=== PATIENT | female | born 1970 | race Caucasian/White ===

== ENCOUNTER → 2019-07-10 | Outpatient (CLI) | payer OTHER | LOC: M.CT 15:30 | DX: R10.11 Right upper quadrant pain (principal); Z98.84 Bariatric surgery status ==

== ENCOUNTER → 2019-07-15 | Outpatient (CLI) | payer OTHER ==
[2019-07-15 08:50] LABS: ABSOLUTE BASOPHILS 0.1 thou/uL (0.0-0.2); ABSOLUTE EOSINOPHILS 0.2 thou/uL (0.0-0.7); ABSOLUTE LYMPHOCYTES 1.4 thou/uL (0.8-5.3); ABSOLUTE MONOCYTES 0.5 thou/uL (0.0-1.2); BASOPHILS 1.1 %; EOSINOPHILS 3.2 %; HEMATOCRIT 33.9 % (37.0-47.0); HEMOGLOBIN 10.6 gm/dL (12.0-15.0); LYMPHOCYTES 22.9 %; MCH 20.9 pg (26.0-34.0); MCHC 31.4 g/dL (28.0-37.0); MCV 66.6 fL (80.0-100.0); MONOCYTES 8.2 %; MPV 7.1 fl. (7.2-11.1); NUCLEATED RBCS 0 /100WBC; PLATELET COUNT* 335 thou/uL (150-400); POLYS 64.6 %; RBC 5.08 mil/uL (4.20-5.00); RDW-CV 18.4 % (10.5-14.5); WBC 6.2 thou/uL (4.0-11.0)
[2019-07-15 09:39] LABS: ANISOCYTOSIS 1+; HYPOCHROMASIA 1+; PLATELET ESTIMATE ADEQUATE
[2019-07-15 09:52] LABS: ALBUMIN 3.3 g/dL (3.4-5.0); ALKALINE PHOSPHATASE 103 U/L (46-116); ANION GAP 10 mmol/L (7-16); BUN 13 mg/dL (7-18); CALCIUM 8.7 mg/dL (8.5-10.1); CHLORIDE 105 mmol/L (98-107); CHOLESTEROL 235 mg/dL (<200); CO2 26 mmol/L (21-32); CREATININE 0.6 mg/dL (0.6-1.3); GLUCOSE 84 mg/dL (70-99); HDL CHOLESTEROL 53 mg/dL (>40); LDL CHOLESTEROL 155 mg/dL (<100); POTASSIUM 4.9 mmol/L (3.5-5.1); SGOT 20 U/L (15-37); SGPT 36 U/L (30-65); SODIUM 141 mmol/L (136-145); TC:HDL 4.4 Ratio (Not establshd); TOTAL BILIRUBIN 0.5 mg/dL (<0.1-1.0); TOTAL PROTEIN 7.1 g/dL (6.4-8.2); TRIGLYCERIDE 139 mg/dL (<150); VLDL 28 mg/dL (<40)
[2019-07-15 09:53] LABS: SERUM ASSESSMENT Clear
== END ==
LOC: M.LAB 08:26
PROVIDERS: Nurse Practitioner Family
DX: Z76.89 Persons encountering health services in other specified circumstances (principal)

== ENCOUNTER → 2020-07-30 | Outpatient (CLI) | payer OTHER | LOC: M.ULTRA 09:00 | PROVIDERS: ATTEND Nurse Practitioner Family | DX: Z12.31 Encounter for screening mammogram for malignant neoplasm of breast (principal); N94.6 Dysmenorrhea, unspecified ==

== ENCOUNTER 2020-09-29 07:41 | Observation (INO) | payer OTHER ==
[2020-09-29] VITALS (7 sets, daily range): BP systolic 122–167; BP diastolic 59–90
[~2020-09-29] VITALS: Ht 157.5 cm; Wt 105.2 kg
[~2020-09-29 07:41] MED LIST: COZAAR 25 MG TA25 M1 PO; METHOCARBAMOL500 M2 PO
[2020-09-29 08:20] LABS: HEMATOCRIT 39.5 % (37.0-47.0); HEMOGLOBIN 12.6 gm/dL (12.0-15.0); MPV 7.2 fl. (7.2-11.1); RBC 5.26 mil/uL (4.20-5.00); RDW-CV 28.3 % (10.5-14.5); WBC 5.6 thou/uL (4.0-11.0)
[2020-09-29 08:25] LABS: ANION GAP 8 mmol/L (7-16); BUN 13 mg/dL (7-18); CALCIUM 8.7 mg/dL (8.5-10.1); CHLORIDE 105 mmol/L (98-107); CO2 26 mmol/L (21-32); CREATININE 0.6 mg/dL (0.6-1.3); GLUCOSE 81 mg/dL (70-99); POTASSIUM 4.1 mmol/L (3.5-5.1); SODIUM 139 mmol/L (136-145)
[2020-09-29 08:28] LABS: APTT 25.6 Seconds (25.0-31.3); PROTIME 10.4 Seconds (9.20-11.50)
[2020-09-29 08:31] LABS: ALBUMIN 3.5 g/dL (3.4-5.0); ALKALINE PHOSPHATASE 80 U/L (46-116); CHOLESTEROL 219 mg/dL (<200); HDL CHOLESTEROL 52 mg/dL (>40); LDL CHOLESTEROL 140 mg/dL (<100); SERUM ASSESSMENT Clear; SGOT 17 U/L (15-37); SGPT 36 U/L (30-65); TC:HDL 4.2 Ratio (Not establshd); TOTAL BILIRUBIN 0.5 mg/dL (<0.1-1.0); TOTAL PROTEIN 7.5 g/dL (6.4-8.2); TRIGLYCERIDE 137 mg/dL (<150); VLDL 27 mg/dL (<40)
--- NOTE | 2020-09-29 10:00 | EKG ---
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
--- NOTE | 2020-09-29 16:37 | EKG ---
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
--- NOTE | 2020-09-29 17:02 | CARD ---
[address] [address] CARDIAC CATH REPORT Name: DIANE TRENT Room: [address] [place] M.R.#: [id number] Admission: 09/29/20 Attend Phys: Codey Cobb MD, Discharge: Date of : 74 Report #: [id number] THIS REPORT FOR: cc: Kiki Philip NP, Elizabeth NP ~ Codey Cobb MD [facility] APPROVED REPORT Study performed: 09/29/2020 08:45:07 Patient Details Patient Status: Out-Patient Room #: The patient is a 50 year-old female Event Personnel Codey Cobb Picu Nurse, Radha Sorenson RN Cattle Sticker, Tabatha Malhotra RTR Monitor, Gumaro Quezada Scrub, Hansa Solis RN Cattle Sticker, Wai Geronimo RTR Monitor Procedures Performed Art Access - R radial artery , Art Access - R femoral artery , Left Heart Cath w/or w/o Coronaries LHC , MAR Place w/wo Plasty Single LAD , MAR Place w/wo Plasty Addl BR DIAG 1 DESADDL Hemostasis w/ Angioseal and TR Vasc band Indication Positive stress test Risk Factors Obesity, Hypercholesterolemia, Hypertension Admission/Lab Medications/Medications given during procedure Heparin IV 6000 units, Angiomax IV 16 ml, Angiomax IV 39.54 ml per hr, Effient PO 60 mg, Aspirin PO 324 mg Procedure Narrative The patient was brought electively to the Cardiac Catheterization Laboratory and was prepped and draped in a sterile manner. The right femoral was infiltrated with 2% Lidocaine subcutaneous anesthesia. A [place] 6 FR sheath was inserted into the right femoral artery. Coronary angiography was performed using coronary diagnostic catheters. The right coronary system was accessed and visualized with a 5F AR MOD1 AND 6F JR4 catheter. The left coronary system was accessed and visualized with a 6F JL4 catheter[place] [address] CARDIAC CATH REPORT Name: DIANE TRENT Room: [address] M.R.#: [id number] Admission: 09/29/20 Attend Phys: Codey Cobb MD, Discharge: Date of : 74 Report #: [id number] was accessed and visualized with a 5F TIGER catheter. Left ventricular/Aortic Valve gradient assessed via catheter pullback. Pre-demployment femoral angiogram was performed . The patient tolerated the procedure well and there were no complications associated with the procedure. There was no hematoma. The right radial artery was accessed and utilized, but unable to cannulate left coronary artery. Switched to right groin to complete procedure. Intraoperative Conscious Sedation Sedation start time: 10:01 Case end Time: 12:49 Fentanyl 175 mcg Versed 6 mg Fluoro Time: 50.1 minutes Dose: DAP 566809 cGycm2 7093 mGy Contrast Type and Amount: Visipaque 520 ml Coronary Angiography The patient's coronary anatomy is right dominant. Diagnostic Cath Left Main 0% narrowing LAD 75% tubular proximalmid vessel stenosis Diagonal 1 80% tubular proximal stenosis Circumflex Nondominant vessel with 40% mid vessel narrowing Right Coronary Moderate size dominant vessel with 30% proximal and mid vessel narrowing Left Ventriculography Left Ventriculography was not performed. Hemodynamics The aortic pressure is 155/87 mmHg with a mean of 118 mmHg. The left ventricular pressure is 154/-13 mmHg with a mean of mmHg. The left ventricular end diastolic pressure is 7 mmHg. There was no gradient across the aortic valve upon pullback. PCI Technique Lesion Anticoagulation was achieved with Angiomax. Patient was preloaded with Angiomax IV 16 ml. Percutaneous coronary intervention was performed on the first diagnonal branch segment. The lesion stenosis prior to intervention was 80% with KATIE 3 flow. A 6FR XB 3.0 100CM Guide Catheter was used to engage the lm ostium. A BMW 190cm Interventional Guidewire was used [place] [address] CARDIAC CATH REPORT Name: DIANE TRENT Room: [address] [place] M.R.#: [id number] Admission: 09/29/20 Attend Phys: Codey Cobb MD, Discharge: Date of : 74 Report #: [id number] BALLOON DILATION A Balloon catheter Trek RX 2.5 X 15 was inserted and inflated up to 10.00atm for 14seconds. Additional Inflation: 10.00atm for 10seconds. Additional Inflation: 12.00atm for 12seconds. STENT DEPLOYMENT A drug-eluting stent Olaf RX Stent 2.37A75zs was inserted and inflated up to 12.00atm for 12seconds. Additional Inflation: 16.00atm for 11seconds. Additional Inflation: 18.00atm for 8seconds. POST STENT DEPLOYMENT BALLOON DILATION A Balloon catheter Trek RX 2.5 X 12 was inserted and inflated up to 14atm for 9seconds. Additional Inflation: 16atm for 10seconds. Additional Inflation: 12.00atm for 25seconds. Final angiography reveals 10 % stenosis with KATIE 3 flow. PCI Technique Lesion 2 Percutaneous Coronary Intervention was performed on the proximalmid left anterior descending artery segment. Patient was preloaded with Angiomax IV 16 ml. The lesion stenosis prior to intervention was 75% with KATIE 3 flow. A 6FR XB 3.0 100CM Guide Catheter was used to engage the lm ostium. A ProwaterFlex 180CM Interventional Guidewire was used to cross the lesion. Balloon Dilation A Balloon catheter Trek RX 2.75 X 12 was inserted and inflated up to 12.00atm for 11seconds. Stent Deployment A drug-eluting stent Olaf RX Stent 2.5X30mm was inserted and inflated up to 14.00atm for 13seconds. Additional Inflation: 16.00atm for 11seconds. Additional Inflation: 18.00atm for 10seconds. Post Stent Deployment Balloon Dilation A Balloon catheter NC Trek RX 2.75 X 12 was inserted and inflated up to 12.00atm for 20seconds. Comments The LAD diagonal PCI was technically complex by virtue of the bifurcation nature of the disease requiring significant lesion preparation with stent deployment in both major vessels with rewiring of the diagonal and a final kissing balloon dilatation to complete the procedure. [address] [address] CARDIAC CATH REPORT Name: DIANE TRENT Room: [address] [place] CidLatoya#: [id number] Admission: 09/29/20 Attend Phys: Codey Cobb MD, Discharge: Date of : 74 Report #: [id number] Conclusion 1. Significant coronary artery disease characterized by the following: A 75% tubular proximalmid LAD stenosis B 80% tubular narrowing of the proximal portion of the first diagonal branch of the LAD C moderate sized but nondominant circumflex with 40% mid vessel narrowing D modest sized but dominant right coronary artery with 30 percent proximal and mid vessel narrowings 2. Mild systemic systolic hypertension with normal left ventricular end-diastolic pressure at rest 3. Successful PTCA with stenting of the proximalmid LAD with 0% residual narrowing following final kissing balloon dilatation 4. Successful PTCA with stenting of the first diagonal with 10% residual narrowing following final kissing balloon dilatation Recommendations Cardiac Risk Reduction Program Aggressive Medical Therapy Medications Administered Aspirin (any) Prasugrel Diagnostic Cath Approved by: Codey Cobb MD Date/Time: 09/29/2020 16:55:57 <ELECTRONICALLY SIGNED> By: Codey Cobb MD, FACC 09/29/201700 00 00Codey Cobb MD, FACC /INF
[2020-09-30] VITALS: BP 128/58
[2020-09-30 04:13] LABS: HEMATOCRIT 34.2 % (37.0-47.0); HEMOGLOBIN 10.9 gm/dL (12.0-15.0); MCH 24.5 pg (26.0-34.0); MCV 76.6 fL (80.0-100.0); MPV 7.3 fl. (7.2-11.1); RBC 4.46 mil/uL (4.20-5.00); RDW-CV 28.4 % (10.5-14.5); WBC 5.6 thou/uL (4.0-11.0)
[2020-09-30 04:30] VITALS: BP 138/62
[2020-09-30 04:38] LABS: ALBUMIN 2.9 g/dL (3.4-5.0); CALCIUM 8.4 mg/dL (8.5-10.1); CK-MB MASS 0.8 ng/mL (<0.5-3.6); CREATININE 0.5 mg/dL (0.6-1.3); POTASSIUM 3.8 mmol/L (3.5-5.1); TOTAL BILIRUBIN 0.4 mg/dL (<0.1-1.0); TOTAL PROTEIN 6.3 g/dL (6.4-8.2); TROPONIN-I LEVEL 0.18 ng/mL (<0.06)
[2020-09-30 08:00] VITALS: BP 140/80
[2020-09-30] MEDS ORDERED: ATORVASTATIN CA20 MG PO (08:32)
[2020-09-30] MEDS ORDERED: EFFIENT10 MG PO (08:32)
[2020-09-30] MEDS ORDERED: COZAAR 25 MG TA25 M1 PO (08:36)
[2020-09-30] MEDS ORDERED: ASPIR 8181 MG PO (08:36)
--- NOTE | 2020-09-30 10:03 | D ---
[address] [address] DISCHARGE SUMMARY Name: MILEYDIANE ELOY Room: [address] [place] M.RLatoya#: [id number] Admission: 09/29/20 Attend Phys: Codey Cobb MD, Discharge: Date of : 74 Report #: [id number] THIS REPORT FOR: cc: Kiki Philip NP, Elizabeth NP ~ Codey Cobb MD [facility] DATE OF SERVICE: 09/30/2020 FINAL DISCHARGE DIAGNOSES: 1. Abnormal nuclear stress test. 2. Chest discomfort compatible with angina. 3. Hypertension. 4. Hyperlipidemia. 5. Exogenous obesity. PROCEDURES: 09/29/2020 -- left heart catheterization, selective coronary arteriography, and PCI to the LAD and prominent first diagonal. The patient is a very pleasant 50-year-old female, who has noted chest discomfort of late. She has a very positive family history for premature coronary artery disease as well as hyperlipidemia. In that context, stress testing was performed, which revealed inducible anterior and lateral ischemia. She underwent cardiac catheterization on 09/29/2020, which revealed 75% proximal-mid LAD stenosis and 80% tubular first diagonal stenosis. There were no significant stenoses of the circumflex or right coronary artery. I performed complex PCI in the LAD and first diagonal, deploying one 2.25 x 18 mm [place] drug-eluting stent in the first diagonal and a 2.5 x 30 mm Loaf drug-eluting stent in the LAD with kissing balloon dilatation at the end to achieve satisfactory wall apposition. The patient did well postprocedurally. She had an insignificant increase in troponin to 0.18. She had no chest pain postprocedurally. She ambulated in the hallways without difficulty and there was good hemostasis at the right radial and right femoral sites of catheterization. Laboratory on 09/30/2020 revealed a sodium of 139, potassium 3.8, BUN 11, creatinine 0.5, glucose 87. Hemoglobin 10.9, white blood cell count 5600 with 226,000 platelets. Cholesterol 219, triglycerides 137, HDL 52, LDL 140 mg%. The patient was discharged to home on aspirin 81 mg daily, Effient or prasugrel 10 mg daily and atorvastatin 40 mg daily as well as [place] [address] DISCHARGE SUMMARY Name: PAU TRENTFER ELOY Room: [address] Darius#: [id number] Admission: 09/29/20 Attend Phys: Codey Cobb MD, Discharge: Date of : 74 Report #: [id number] She is scheduled to return to see Dr. Solano in 4 weeks for clinical followup. Therefore, the patient is discharged to home in stable condition on the aforementioned medications with followup as iterated above. <ELECTRONICALLY SIGNED> By: Coedy Cobb MD, [facility] 09/30/20 1003 0941 Devonte Cobb MD, FACC /nt
[2020-09-30 10:55] VITALS: BP 138/62
[2020-09-30 12:06] VITALS: BP 138/62
--- NOTE | 2020-09-30 16:26 | EKG ---
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
== END 2020-09-30 13:00 | disposition home or self-care (01) ==
LOC: M.CL 07:41 → M.TBA-CV 13:04 → M.2W 15:26
PROVIDERS: ADMIT Internal Medicine; ATTEND Internal Medicine
DX: I25.118 Atherosclerotic heart disease of native coronary artery with other forms of angina pectoris (principal); I10 Essential (primary) hypertension; E78.5 Hyperlipidemia, unspecified; E66.09 Other obesity due to excess calories; Z68.41 Body mass index [BMI] 40.0-44.9, adult; Z79.82 Long term (current) use of aspirin; Z79.899 Other long term (current) drug therapy; Z20.828 Contact with and (suspected) exposure to other viral communicable diseases

== ENCOUNTER → 2020-10-28 | Outpatient (CLI) | payer OTHER ==
[~2020-10-28] MED LIST changes: +ASPIR 8181 MG PO; +ATORVASTATIN CA20 MG PO; +EFFIENT10 MG PO
== END ==
LOC: M.RAD 10:12
PROVIDERS: ATTEND Internal Medicine Rheumatology
DX: M25.60 Stiffness of unspecified joint, not elsewhere classified (principal); M25.50 Pain in unspecified joint; R53.83 Other fatigue; Z87.19 Personal history of other diseases of the digestive system